=== PATIENT | female | born 1990 | race African-American/Black ===

== ENCOUNTER 2019-03-08 19:17 | Emergency (ER) | payer MEDICAID ==
[~2019-03-08] VITALS: Ht 167.6 cm; Wt 61.2 kg
[2019-03-08 19:40] VITALS: BP 110/63
[2019-03-09] MEDS ORDERED: TETANUS-DIPTH-ACEL PERTUSSIS 0.5ML SYRG IM ONE (00:30)
== END 2019-03-09 01:16 | disposition home or self-care (01) ==
LOC: ER 19:22
DX: S91.331A Puncture wound without foreign body, right foot, initial encounter (principal); W21.31XA Struck by shoe cleats, initial encounter; Y93.01 Activity, walking, marching and hiking; Y92.89 Other specified places as the place of occurrence of the external cause; Y99.8 Other external cause status
CPT/HCPCS: 90471; 90715

== ENCOUNTER 2025-06-07 11:54 | Outpatient (CLI) | payer OTHER | END 2025-06-07 17:00 | disposition home or self-care (01) | LOC: LAB 11:54 | DX: Z01.84 Encounter for antibody response examination (principal) ==